=== PATIENT | male | born 1995 | race Caucasian/White ===

== ENCOUNTER → 2016-10-19 | Outpatient (CLI) | payer BC ==
--- NOTE | 2016-10-19 11:40 | MR ---
MRI brain with and without contrast HISTORY: Malformation of coronary vessels, headaches, family history of aneurysm Multiplanar multisequence and postcontrast images through the brain following 13 cc MultiHance IV There is no restricted diffusion. No hemorrhage or hydrocephalus. There are normal vascular flow void s. Left vertebral artery appears dominant. Difficult to exclude aneurysm at the trifurcation of the i nternal carotid artery on the right, axial image 14, nodularity also present on the left, image 13 T2 data set. Possible mucus retention cyst in the bilateral maxillary sinuses. Cerebellopontine angles, corpus callosum, pituitary, cervical medullary junction are normal. The orbi ts show symmetric appearance. There is no abnormal enhancement following contrast administration. Inf lammatory change also present in the frontal sinus. IMPRESSION: Sinus disease. No significant brain abnormalities evident. Difficult to exclude aneurysm, [place] of [place] MRA may be of benefit
== END | disposition home or self-care (01) ==
LOC: RADMRIMAIN 09:20
PROVIDERS: ATTEND Family Medicine
DX: Q24.5 Malformation of coronary vessels (principal)
CPT/HCPCS: 70553; A9577

== ENCOUNTER 2017-09-17 07:06 | Emergency (ER) | payer BC, OTHER ==
[2017-09-17] MEDS ORDERED: ONDANSETRON 4 MG/2 ML VIAL IVP STA (08:26)
[2017-09-17] MEDS ORDERED: RX INFO: IV CONTRAST WAS GIVEN 1 EACH MISC MISCELLANE PRN (08:26)
[2017-09-17] MEDS ORDERED: SODIUM CHLORIDE 0.9% 1,000 ML IV STA (08:26)
--- NOTE | 2017-09-17 08:29 | ED ---
General Adult HPI - General Chief complaint: Abdominal Pain Stated complaint: abd pain Time Seen by Provider: 09/17/17 08:19 Source: patient, RN notes reviewed Mode of arrival: ambulatory Limitations: no limitations - History of Present Illness Initial comments: 21 yo male present to the emergency department with a chief complaint of left lower quadrant abdominal pain. He states he's had nausea vomiting and diarrhea since Wednesday. He states he's also developed some left lower quadrant pain that radiates up into the left upper quadrant. He denies any fever chills with this. He states no one has similar symptoms. There has been no other symptoms in the patient. He denies any history of abdominal issues in the past. He states that sometimes the pain will shoot to his back. He was concerned due to the continued symptoms without that he should be seen. He denies any blood in the stool or vomit. Patient denies any recent fever, chills, shortness of breath , chest pain, back pain, numbness or tingling, dysuria or hematuria, constipation, headaches or visual changes, or any other current symptoms. - Related Data Home Medications Medication Instructions Recorded Confirmed Ibuprofen [Motrin Ib] 400 mg PO ONCE 09/17/17 09/17/17 Previous Rx's Medication Instructions Recorded Dicyclomine [Bentyl] 10 mg PO TID #20 capsule 09/17/17 Hydrocodone/Acetaminophen [[place] 1 each PO Q6HR PRN #10 tab 09/17/17 5-325] Ondansetron Odt [Zofran ODT] 4 mg PO Q8HR PRN #20 tab 09/17/17 predniSONE 50 mg PO DAILY #5 tab 09/17/17 Allergies Allergy/AdvReac Type Severity Reaction Status Date / Time No Known Allergies Allergy Verified 09/17/17 08:24 Review of Systems ROS Statement: Those systems with pertinent positive or pertinent negative responses have been documented in the HPI. ROS Other: All systems not noted in ROS Statement are negative. Past Medical History Past Medical History: No Reported History History of Any Multi-Drug Resistant Organisms: None Reported Additional Past Surgical History / Comment(s): open heart Past Psychological History: No Psychological Hx Reported Smoking Status: Current every day smoker Past Alcohol Use History: Occasional Past Drug Use History: None Reported General Exam - General Exam Comments Initial Comments: General: The patient is awake and alert, in no distress, and does not appear acutely ill. Eye: Pupils are equal, round and reactive to light, extra-ocular movements are intact; there is normal conjunctiva bilaterally. No signs of icterus. Ears, nose, mouth and throat: There are moist mucous membranes. Neck: The neck is supple, there is no tenderness. Cardiovascular: There is a regular rate and rhythm. murmur present rub or gallop is appreciated. Respiratory: Lungs are clear to auscultation, respirations are non-labored, breath sounds are equal. No wheezes, stridor, rales, or rhonchi. Gastrointestinal: Soft, non-distended, mild tenderness to palpation in left lower quadrant of the abdomen without masses or organomegaly noted. There is no rebound or guarding present. No CVA tenderness. Bowel sounds are unremarkable. Back: There is no tenderness to palpation in the midline. There is no obvious deformity. No rashes noted. Musculoskeletal: Normal ROM, no tenderness, There is no pedal edema. There is no calf tenderness or swelling. Sensation intact. Pulses equal bilaterally 2+. Neurological: CN II-XII intact, There are no obvious motor or sensory deficits. Coordination appears grossly intact. Speech is normal. Skin: Skin is warm and dry and no rashes or lesions are noted. Psychiatric: Cooperative, appropriate mood & affect, normal judgment. Limitations: no limitations Course Vital Signs 09/17/17 07:17 Temperature 97.3 F L Pulse Rate 77 Respiratory 15 Rate Blood Pressure 142/75 O2 Sat by Pulse 99 Oximetry Medical Decision Making - Medical Decision Making 21-year-old male presents for left sided abdominal pain with nausea vomiting and diarrhea. At this time patient's CAT scan is reviewed. There is concern for possible inflammatory bowel disease. Patient is feeling better with the current medications. At this time we discussed we'll start him on pain medication nausea medication for home. We discussed we'll also put him on steroids due to his pain. We did discuss in detail about the CAT scan results and following these to follow-up with a sociology faculty member. We did give him this information. We did discuss this could worsen and he could require hospitalization as well and when to return the emergency department. Patient stated that he understood and he is in agreement with this plan. All questions have been answered. He will be discharged home. - Lab Data Result diagrams: 09/17/17 08:16 09/17/17 08:16 Lab Results 09/17/1718 09/17/17 Range/Units 08:16 08:16 09:09 WBC 7.2 (3.8-10.6) k/uL RBC 4.86 (4.30-5.90) m/uL Hgb 14.4 (13.0-17.5) gm/dL Hct 43.2 (39.0-53.0) % MCV 89.0 (80.0-100.0) fL MCH 29.7 (25.0-35.0) pg MCHC 33.4 (31.0-37.0) g/dL RDW 12.4 (11.5-15.5) % Plt Count 186 (150-450) k/uL Neutrophils % 76 % Lymphocytes % 15 % Monocytes % 6 % Eosinophils % 2 % Basophils % 0 % Neutrophils # 5.5 (1.3-7.7) k/uL Lymphocytes # 1.0 (1.0-4.8) k/uL Monocytes # 0.4 (0-1.0) k/uL Eosinophils # 0.1 (0-0.7) k/uL Basophils # 0.0 (0-0.2) k/uL Sodium 143 (137-145) mmol/L Potassium 4.2 (3.5-5.1) mmol/L Chloride 104 (98-107) mmol/L Carbon Dioxide 27 (22-30) mmol/L Anion Gap 12 mmol/L BUN 16 (9-20) mg/dL Creatinine 0.70 (0.66-1.25) mg/dL Est GFR (MDRD) Af Amer >60 (>60 ml/min/1.73 sqM) Est GFR (MDRD) Non-Af >60 (>60 ml/min/1.73 sqM) Glucose 88 (74-99) mg/dL Calcium 9.7 (8.4-10.2) mg/dL Total Bilirubin 0.9 (0.2-1.3) mg/dL AST 17 (17-59) U/L ALT 23 (21-72) U/L Alkaline Phosphatase 102 (38-126) U/L Total Protein 6.9 (6.3-8.2) g/dL Albumin 4.2 (3.5-5.0) g/dL Amylase 55 (30-110) U/L Lipase 67 (23-300) U/L Urine Color Yellow Urine Appearance Clear (Clear) Urine pH 7.0 (5.0-8.0) Ur Specific [place] 1.025 (1.001-1.035) Urine Protein Negative (Negative) Urine Glucose (UA) Negative (Negative) Urine Ketones 1+ H (Negative) Urine Blood Negative (Negative) Urine Nitrite Negative (Negative) Urine Bilirubin Negative (Negative) Urine Urobilinogen <2.0 (<2.0) mg/dL Ur Leukocyte Esterase Negative (Negative) - Radiology Data Radiology results: report reviewed, image reviewed Disposition Clinical Impression: Colitis Disposition: HOME SELF-CARE Condition: Stable Instructions: Colitis (ED) Additional Instructions: Please use medication as discussed. Please follow up with family doctor if symptoms have not improved over the next two days. Please return to the emergency room if your symptoms increase or worsen or for any other concerns. Prescriptions: Dicyclomine [Bentyl] 10 mg PO TID #20 capsule Hydrocodone/Acetaminophen [[place] 5-325] 1 each PO Q6HR PRN #10 tab PRN Reason: Pain Ondansetron Odt [Zofran ODT] 4 mg PO Q8HR PRN #20 tab PRN Reason: Nausea predniSONE 50 mg PO DAILY #5 tab Referrals: Trung Dang DO [Primary Care Provider] - 1-2 days Jaskaran Palumbo MD [STAFF PHYSICIAN] - 1-2 days Time of Disposition: 09:56
[2017-09-17] MEDS: DICYCLOMINE 10 MG/ML 2 ML AMP IM STA ×2 (08:39→08:42)
[2017-09-17] MEDS ORDERED: DICYCLOMINE 20 MG TAB PO STA (08:42)
[2017-09-17 08:45] LABS: Basophils % (A) 0 %; Eosinophils # (A) 0.1 k/uL (0-0.7); Eosinophils % (A) 2 %; HCT 43.2 % (39.0-53.0); HGB 14.4 gm/dL (13.0-17.5); Lymphocytes % (A) 15 %; MCH 29.7 pg (25.0-35.0); MCHC 33.4 g/dL (31.0-37.0); Mean Platelet Volume 7.2; Monocytes # (A) 0.4 k/uL (0-1.0); Monocytes % (A) 6 %; Neutrophils # (A) 5.5 k/uL (1.3-7.7); Neutrophils % (A) 76 %; Platelet Count 186 k/uL (150-450); RBC 4.86 m/uL (4.30-5.90); RDW 12.4 % (11.5-15.5); WBC 7.2 k/uL (3.8-10.6)
[2017-09-17 08:58] LABS: ALT 23 U/L (21-72); AST 17 U/L (17-59); Albumin 4.2 g/dL (3.5-5.0); Alkaline Phosphatase 102 U/L (38-126); Amylase 55 U/L (30-110); Anion Gap 12 mmol/L; Blood Urea Nitrogen 16 mg/dL (9-20); Calcium 9.7 mg/dL (8.4-10.2); Carbon Dioxide 27 mmol/L (22-30); Chloride 104 mmol/L (98-107); Glucose 88 mg/dL (74-99); Lipase 67 U/L (23-300); Potassium 4.2 mmol/L (3.5-5.1); Sodium 143 mmol/L (137-145); Total Bilirubin 0.9 mg/dL (0.2-1.3); Total Protein 6.9 g/dL (6.3-8.2)
[2017-09-17 09:26] LABS: Appearance,Urine Clear (Clear); Bilirubin,Urine Negative (Negative); Blood,Urine Negative (Negative); Color,Urine Yellow; Glucose,Urine (UA) Negative (Negative); Ketones,Urine 1+ (Negative); Leukocyte Esterase,Urine Negative (Negative); Nitrite,Urine Negative (Negative); Protein,Urine Negative (Negative); Specific Gravity,Urine 1.025 (1.001-1.035); Urobilinogen,Urine <2.0 mg/dL (<2.0)
--- NOTE | 2017-09-17 09:35 | CT ---
EXAMINATION TYPE: CT abdomen pelvis w con DATE OF EXAM: 09/17/2017 COMPARISON: NONE HISTORY: LLQ pain CT DLP: 853 mGycm Automated exposure control for dose reduction was used. TECHNIQUE: Helical acquisition of images was performed from the lung bases through the pelvis. CONTRAST: Performed without Oral Contrast and with IV Contrast, patient injected with 100 mL of Omnipaque 300. FINDINGS: LUNG BASES: No significant abnormality is appreciated. LIVER/GB: Minimal periportal edema likely relates to patient's hydration status. Along a branch of th e left main portal vein there is a linear area of hypoattenuation within the left lobe of the liver t hat extends to the subcapsular surface near the hepatic dome on series 3 image 11 through 16. No subc apsular hematoma or surrounding fluid is seen. No evidence of cholelithiasis. PANCREAS: No significant abnormality is seen. No ductal dilatation. SPLEEN: No significant abnormality is seen. No splenomegaly. The spleen measures 11.2 cm in craniocau bev dimension. ADRENALS: No significant abnormality is seen. No thickening or nodularity. KIDNEYS: No significant abnormality is seen. No nephrolithiasis or hydronephrosis. FREE AIR: No free air is visualized. ADENOPATHY: No greater than 1 cm short axis lymph nodes are seen within the abdomen or pelvis REPRODUCTIVE ORGANS: No significant abnormality is seen URINARY BLADDER: No significant abnormality is seen. OSSEOUS STRUCTURES: Solitary sclerotic focus within the left iliac bone likely represents a benign b [place]. Mild asymmetric sacroiliac joint sclerosis is seen, right greater than left. Multilevel d egenerative changes of the thoracic spine and vertebral body hemangioma at L3 are seen.. BOWEL: Appendix is retrocecal, partially fluid-filled and within normal limits of size measuring 6 mm . No periappendiceal fat stranding is seen. No bowel dilation is noted. Terminal ileum is decompresse d without gross evidence of bowel wall thickening. Low-lying within the pelvis and the region of the distal ileum there are multiple loops of small josue l tethered centrally with prominent vasa recta on series 3 image 70 through 72. Focal no gross eviden ce of fistula is seen. Narrowing of some of the bowel loops are noted without proximal dilatation to suggest stricture. Narrowing is seen on series 3 image 72 no sinus tracts are seen or perirectal absc esses. Few nonenlarged scattered mesenteric lymph nodes are noted. IMPRESSION: 1. Tethered loops of nondilated small bowel within the low pelvis with engorged vasa recta. Findings are concerning for underlying inflammatory bowel disease such as Crohn's disease. No current terminal ileum thickening to suggest terminal ileitis. No distinct fistula or sinus tract. Caliber narrowing of the small bowel is seen with no definitive stricture. CT or MRI enterography could further evaluat e. No pericolonic or perienteric fluid collection to suggest abscess. 2. Linear hypoattenuation within the left hepatic lobe that may represent sequela of prior trauma (he patic infarct or laceration) or atypical focal fatty infiltration. Confirmation of focal fatty infilt ration could be assessed with MRI.
[2017-09-17 10:18] VITALS: BP 130/70; PULSE 68; RESP 16; TEMP 97.8
== END 2017-09-17 10:17 | disposition home or self-care (01) ==
LOC: EC 07:06
DX: K52.9 Noninfective gastroenteritis and colitis, unspecified (principal); F17.200 Nicotine dependence, unspecified, uncomplicated; Z53.20 Procedure and treatment not carried out because of patient's decision for unspecified reasons; Z79.1 Long term (current) use of non-steroidal anti-inflammatories (NSAID)
CPT/HCPCS: 36415; 80053; 82150; 83690; 85025; 81003; 74177; 99284; 96374; J2405; Q9967

== ENCOUNTER 2020-02-13 18:09 | Emergency (ER) | payer OTHER ==
[2020-02-13 18:16] VITALS: RESP 16
[2020-02-13] MEDS ORDERED: SODIUM CHLORIDE 0.9% 1,000 ML IV STA (18:31)
[2020-02-13] MEDS ORDERED: KETOROLAC 30 MG/ML 1 ML VIAL IVP STA (18:31)
[2020-02-13] MEDS ORDERED: PIPERACILLIN-TAZOBACTAM 3.375 GM in SODIUM CHLORIDE 0.9% 100 ML IVPB STA (18:32)
[2020-02-13] MEDS ORDERED: NALOXONE 0.4 MG/ML 1 ML VIAL IV PRN (18:33)
[2020-02-13] MEDS ORDERED: ACETAMINOPHEN TAB 325 MG TAB PO PRN (18:33)
--- NOTE | 2020-02-13 18:35 | ED ---
General Adult HPI - General Chief complaint: Skin/Abscess/Foreign Body Stated complaint: hemorrhoids Time Seen by Provider: 02/13/20 18:17 Source: patient, RN notes reviewed, old records reviewed Mode of arrival: ambulatory Limitations: no limitations - History of Present Illness Initial comments: 24-year-old male patient presents to ED with chief complaint of perirectal abscess for the last 2 days causing discomfort while sitting. He also reports that he has had a mass in his scrotum for the last 7 months. Denies any scrotal pain. Denies any other complaints. Denies any fevers or chills. Systemic: Pt denies fatigue, fever/chills, rash. Pt denies weakness, night sweats, weight loss. Neuro: Pt denies headache, visual disturbances, syncope or pre-syncope. HEENT: Pt denies ocular discharge or irritation, otalgia, rhinorrhea, pharyngitis or notable lymphadenopathy. Cardiopulmonary: Pt denies chest pain, SOB, heart palpitations, dyspnea on ex ertion. Abdominal/GI: Pt denies abdominal pain, n/v/d. : Pt denies dysuria, burning w/ urination, frequency/urgency. Denies new onset urinary or bowel incontinence. MSK: Pt denies myalgia, loss of strength or function in extremities. Neuro: Pt denies new onset weakness, paresthesias. - Related Data Previous Rx's Medication Instructions Recorded Levofloxacin [Levaquin] 750 mg PO DAILY 6 Days #6 tab 02/13/20 metroNIDAZOLE [Flagyl] 500 mg PO TID #21 tab 02/13/20 Allergies Allergy/AdvReac Type Severity Reaction Status Date / Time No Known Allergies Allergy Verified 02/13/20 18:48 Review of Systems ROS Statement: Those systems with pertinent positive or pertinent negative responses have been documented in the HPI. ROS Other: All systems not noted in ROS Statement are negative. 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 HEENT: NC/AT, trachea midline, neck supple, no lymphadenopathy. Posterior pharynx non erythematous, without exudates. External ears appear normal, without discharge. Mucous membranes moist. Eyes PERRLA, EOM intact. There is no scleral icterus. No pallor noted. Cardiopulmonary: RRR, no murmurs, rubs or gallops, no JVD noted. Lungs CTAB in anterior and posterior feliz. No peripheral edema. Abdominal exam: Abdomen soft and non-distended. Abdomen non-tender to palpation in all 4 quadrants. Bowel sounds active in LLQ. No hepatosplenomegaly. No ecchymosis Neuro: CN II-XII grossly intact. No nuchal rigidity. No raccon eyes, no ferreira sign, no hemotympanum. No cervical spinal tenderness. MSK: No posterior calf tenderness bilaterally, homans sign negative bilaterally. Posterior tibialis and radial pulse +2 bilaterally. Sensation intact in upper and lower extremities. Full active ROM in upper and lower extremities, 5/5 stregnth. : Perirectal abscess noted. Approximately 2 x 2 centimeters. Didn't drainage performed displayed purulent drainage. Patient significant relief. There is appears to be a lipoma on the right side of the scrotum. Nonerythematous or tender. No scrotal tenderness or skin changes. No masses are noted. Limitations: no limitations Course Vital Signs 02/13/20 02/13/20 02/13/20 18:11 18:52 19:32 Temperature 98.7 F 98.3 F Pulse Rate 103 H 89 74 Respiratory 16 16 16 Rate Blood Pressure 125/74 128/74 116/68 O2 Sat by Pulse 98 98 96 Oximetry Medical Decision Making - Medical Decision Making 24-year-old male patient presents to chief complaint perirectal abscess. Patient will signs are stable, afebrile. Case was discussed with Dr. evans who discussed case with general surgeon Dr. moss who reccomended incision and drainage and he'll see him in the office on . incision and drainage was performed patient tolerated procedure well. Scrotal ultrasound was performed. This displayed multiple findings. Small hyperechoic foci both testicles are likely related to calcification or old infection. Did not suspect neoplastic process. 5 x 2 mm calcification right testicle is benign disease. No evidence of torsion. Possible hernia. Right-sided hydrocele. Patient also follow up with urology outpatient basis. Initiated on Levaquin and Flagyl. Pt was advised to avoid strenuous activity and also moderate alcohol. Will return to ER if condition worsens. Case discussed and pt seen with Dr. Evans. Disposition Clinical Impression: Perirectal abscess, Scrotal mass Disposition: ADMITTED IP TO THIS [facility] Condition: Serious Instructions (If sedation given, give patient instructions): Hydrocele (ED), Abscess Incision and Drainage (DC) Additional Instructions: Follow-up with Dr. Moss on . Take antibiotics as directed. Call his office tomorrow. Return here if any worsening symptoms. Follow-up with urologist tomorrow as well. Follow up with PCP 1-2 days. Prescriptions: metroNIDAZOLE [Flagyl] 500 mg PO TID #21 tab Levofloxacin [Levaquin] 750 mg PO DAILY 6 Days #6 tab Is patient prescribed a controlled substance at d/c from ED?: No Referrals: Trung Dang DO [Primary Care Provider] - 1-2 days Kenneth Rinaldi MD [STAFF PHYSICIAN] - 1-2 days Gabriele Orozco MD [STAFF PHYSICIAN] - 1-2 days
[2020-02-13] MEDS ORDERED: MORPHINE SULFATE 4 MG/ML SYRINGE IM STA (18:40)
[2020-02-13] MEDS ORDERED: diazePAM 5 MG TAB PO STA (18:40)
[2020-02-13] MEDS ORDERED: LEVOFLOXACIN 750 MG TAB PO STA (18:41)
[2020-02-13] MEDS ORDERED: metroNIDAZOLE 500 MG TAB PO STA (18:41)
[2020-02-13 19:33] VITALS: BP 116/68; PULSE 74; TEMP 98.3
--- NOTE | 2020-02-13 20:28 | US ---
EXAMINATION TYPE: US scrotum with doppler. Grayscale and color Doppler Duplex imaging performed of jose luis cornell scrotum. DATE OF EXAM: 02/13/2020 COMPARISON: CT CLINICAL HISTORY: scrotal mass. Patient has felt lump superior to right testicle x 7 months. Hx of un descended testicles. EXAM MEASUREMENTS: TESTICLES: Right Testicle: 4.5 x 2.4 x 2.0 cm Left Testicle: 4.5 x 2.3 x 1.8 cm EPIDIDYMIS HEAD: Right Epididymis: 0.7 x 1.0 x 0.9 cm Left Epididymis: 0.6 x 1.1 x 0.5 cm Doppler performed to assess for testicular vascularity; bilateral color flow and waveforms are seen. Presence of hydroceles: Right measurin.1 x 0.7 x 0.7 cm. Presence of varicoceles: None seen -Superior to the right testicle and right epididymal head, at patient's area of concern, there appe ars to be a homogeneous area isoechoic to the testicles. This palpable area measures 2.2 x 2.1 x 1.4 cm and appears to have peripheral vascularity and possible minimal internal vascularity. -Hyperechoic area with posterior shadowing seen inferior to right testicle: 0.5 x 0.4 x 0.2 cm. -Hyperechoic area seen within right testicle: 0.2 x 0.2 x 0.1 cm. -Hyperechoic area seen within left testicle: 0.4 x 0.2 x 0.1 cm. IMPRESSION: There are small hyperechoic foci in both testicles that could relate to calcification in old infection. I do not suspect a neoplastic process. There is 5 x 2 mm calcification inferior to the right testicle also consistent with benign disease. No evidence of testicular torsion. There is sofie d area above the right testicle that is the area of concern that is not in the epididymis. This could be hernia. There is mild right side hydrocele.
--- NOTE | 2020-02-13 21:17 | ED ---
Disposition Clinical Impression: Perirectal abscess, Scrotal mass Disposition: ADMITTED IP TO THIS [facility] Condition: Serious Instructions (If sedation given, give patient instructions): Hydrocele (ED), Abscess Incision and Drainage (DC) Additional Instructions: Follow-up with Dr. Rodríguez on . Take antibiotics as directed. Call his office tomorrow. Return here if any worsening symptoms. Follow-up with urologist tomorrow as well. Follow up with PCP 1-2 days. 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
== END 2020-02-13 20:50 | disposition other institution (70) ==
LOC: EC 18:09
DX: K61.1 Rectal abscess (principal); N43.3 Hydrocele, unspecified; F17.200 Nicotine dependence, unspecified, uncomplicated; N50.89 Other specified disorders of the male genital organs
CPT/HCPCS: 96372; 46040; 99285; 87070; 87205; 93975; 76870; J2270